=== PATIENT | male | born 1980 | race Hispanic/Latino ===

== ENCOUNTER 2023-02-14 00:08 | Emergency (ER) | payer OTHER ==
--- OUTSIDE RECORDS SUMMARY | 2023-02-14 00:12 | XMS REPORT | Continuity of Care Document ---
:1980 Author Organization [facility] t Address [address] [place] [address] [address] [place] [address] Care Team Providers Name Role Phone VALERIA REED Belen Primary Care Physician Unavailable TOREY GOETZ Attending Clinician Unavailable Torey Goetz MD Attending Clinician Unknown, Attending Attending Clinician Unavailable King ZAKIA MD, James C Attending Clinician NICKI MILLER III Attending Clinician Unavailable Doctor Unassigned, [place] Attending Clinician Unavailable Vaccine, Ang Db Cbc Fam Attending Clinician Unavailable Reymundo Goldman MD Attending Clinician REYMUNDO GOLDMAN Attending Clinician Unavailable SOFIA FIGUEREDO Attending Clinician Unavailable Only, Ang Db Test Attending Clinician Unavailable Bea [employer] Attending Clinician Nurse, Adc Pob Immunization Attending Clinician Unavailable Moustapha Kent DO Attending Clinician MOUSTAPHA KENT Attending Clinician Unavailable RAMESH COX Attending Clinician Unavailable Payers Payer Name Policy Type Policy Number Effective Date Expiration Date Genevieve esquivel CIGNA II [id number] 2019 00:00:00 Problems Condition Condition Condition Status Onset Resolution Last Treating Co mments Source Name Details Category Date Date Treatment Clinician Date No known No known Disease Unive rs active active ity of problems problems [facility] Allergies, Adverse Reactions, Alerts Allergy Allergy Status Severity Reaction(s) Onset Inactive Treating Comm ents Source Name Type Date Date Clinician NO KNOWN Drug Active Univers ALLERGIE Class [facility] [place] [facility] Social History Social Habit Start Date Stop Date Quantity Comments Source Exposure to 2022-11-26 2022-12-06 Not sure University SARS-CoV-2 00:00:00 10:31:00 [place] [facility] (event) [place] Tobacco use and 2022-12-06 2022-12-06 Smokeless tobacco Un iversity of exposure 00:00:00 00:00:00 non-user [facility] Sex Assigned At [birth year] Universit y of 00:00:00 00:00:00 [facility] Smoking Status Start Date Stop Date Source Never smoked tobacco [facility] Medications Ordered Filled Start Stop Current Ordering Indication Dosage Frequency Signature Comments Components Source Medication Medication Date Date Medication? Clinician (SIG) Name Name benzonatate Yes [id number] 200mg Take 2 Univers 100 mg 3-08 capsules ity of capsule 00:00: by mouth [place] 00 every 8 Medical (eight) Branch hours as needed for Cough. benzonatate Yes [id number] 200mg Take 2 Univers 100 mg 3-08 capsules ity of capsule 00:00: by mouth [place] 00 every 8 Medical (eight) Branch hours as needed for Cough. oseltamivir 2022- Yes [id number] 75mg Take 1 Univers (TAMIFLU) 3-08 03-14 capsule by ity of 75 mg 00:00: 04:59 mouth in [place] capsule 00 :00 the Medical morning Branch and 1 capsule in the evening. Do all this for 5 days. oseltamivir 2022- Yes [id number] 75mg Take 1 Univers (TAMIFLU) 3-08 03-14 capsule by ity of 75 mg 00:00: 04:59 mouth in [place] capsule 00 :00 the Medical morning Branch and 1 capsule in the evening. Do all this for 5 days. benzonatate Yes [id number] 100mg Take 1 Univers 100 mg 1-13 capsule by ity of capsule 00:00: mouth [place] 00 every 8 Medical (eight) Branch hours as needed for Cough. benzonatate 2022- No [id number] 100mg Take 1 Univers 100 mg 1-13 03-08 capsule by ity of capsule 00:00: 00:00 mouth [place] 00 :00 every 8 Medical (eight) Branch hours as needed for Cough. Methylpredn 2022- No [id number] 4mg Take 1 Univers isolone 4 1-13 -19 tablet by ity of mg tablet 00:00: 05:59 mouth [place] 00 :00 every 12 Medical (twelve) Branch hours for 5 days. bromphenira 2020-0 Yes [id number] 5mL Take 5 mL Univers mine-pseudo 1-10 by mouth 4 it y of ephedrine-D 00:00: (four[place] - [place] mg/5 mL daily as Branch syrup needed for Cold symptoms. ibuprofen 2020-0 Yes [id number] 800mg Take 1 U nivers 800 mg 1-10 tablet by ity of tablet 00:00: mouth [place] 00 every 8 Medical (eight) Branch hours as needed for Pain (scale 4-6). benzonatate 2020-0 Yes [id number] 200mg Take 1 Univers 200 mg 1-10 capsule by ity of capsule 00:00: mouth 3 [place] 00 (three) Medical times Branch daily as needed for Cough. bromphenira 2020-0 Yes [id number] 5mL Take 5 mL Univers mine-pseudo 1-10 by mouth 4 it y of ephedrine-D 00:00: (four[place] - [place] mg/5 mL daily as Branch syrup needed for Cold symptoms. ibuprofen 2020-0 Yes [id number] 800mg Take 1 U nivers 800 mg 1-10 tablet by ity of tablet 00:00: mouth [place] 00 every 8 Medical (eight) Branch hours as needed for Pain (scale 4-6). bromphenira 2020-0 Yes [id number] 5mL Take 5 mL Univers mine-pseudo 1-10 by mouth 4 it y of ephedrine-D 00:00: (four[place] -10 00 [place] Medical mg/5 mL daily as Branch syrup needed for Cold symptoms. ibuprofen 2020-0 Yes [id number] 800mg Take 1 U nivers 800 mg 1-10 tablet by ity of tablet 00:00: mouth [place] 00 every 8 Medical (eight) Branch hours as needed for Pain (scale 4-6). bromphenira 2020-0 Yes [id number] 5mL Take 5 mL Univers mine-pseudo 1-10 by mouth 4 it y of ephedrine-D 00:00: (four[place] 00 [place] mg/5 mL daily as Branch syrup needed for Cold symptoms. ibuprofen 2020-0 Yes [id number] 800mg Take 1 U nivers 800 mg 1-10 tablet by ity of tablet 00:00: mouth [place] 00 every 8 Medical (eight) Branch hours as needed for Pain (scale 4-6). benzonatate 2020-0 Yes [id number] 200mg Take 1 Univers 200 mg 1-10 capsule by ity of capsule 00:00: mouth 3 00 (three) Medical times Branch daily as needed for Cough. bromphenira 2020-0 Yes [id number] 5mL Take 5 mL Univers mine-pseudo 1-10 by mouth 4 it y of ephedrine-D 00:00: (four) Nydia Soriano 00 times Medical mg/5 mL daily as Branch syrup needed for Cold symptoms. ibuprofen 2020-0 Yes [id number] 800mg Take 1 U nivers 800 mg 1-10 tablet by ity of tablet 00:00: mouth [place] 00 every 8 Medical (eight) Branch hours as needed for Pain (scale 4-6). benzonatate 2020-0 Yes [id number] 200mg Take 1 Univers 200 mg 1-10 capsule by ity of capsule 00:00: mouth (three) Medical times Branch daily as needed for Cough. bromphenira 2020-0 Yes [id number] 5mL Take 5 mL Univers mine-pseudo 1-10 by mouth 4 it y of ephedrine-D 00:00: (four) Nydia Soriano 00 times Medical mg/5 mL daily as Branch syrup needed for Cold symptoms. ibuprofen 2020-0 Yes [id number] 800mg Take 1 U nivers 800 mg 1-10 tablet by ity of tablet 00:00: mouth [place] 00 every 8 Medical (eight) Branch hours as needed for Pain (scale 4-6). benzonatate 2020-0 Yes [id number] 200mg Take 1 Univers 200 mg 1-10 capsule by ity of capsule 00:00: mouth 3 00 (three) Medical times Branch daily as needed for Cough. bromphenira 2020-0 Yes [id number] 5mL Take 5 mL Univers mine-pseudo 1-10 by mouth 4 it y of ephedrine-D 00:00: (four) Nydia shearer M 2-30-10 00 times Medical mg/5 mL daily as Branch syrup needed for Cold symptoms. ibuprofen 2020-0 Yes [id number] 800mg Take 1 U nivers 800 mg 1-10 tablet by ity of tablet 00:00: mouth [place] 00 every 8 Medical (eight) Branch hours as needed for Pain (scale 4-6). benzonatate 2020-0 Yes [id number] 200mg Take 1 Univers 200 mg 1-10 capsule by ity of capsule 00:00: mouth 3 [place] 00 (three) Medical times Branch daily as needed for Cough. bromphenira 2020-0 Yes [id number] 5mL Take 5 mL Univers mine-pseudo 1-10 by mouth 4 it y of ephedrine-D 00:00: (four[place] 2-30-10 00 times Medical mg/5 mL daily as Branch syrup needed for Cold symptoms. ibuprofen 2020-0 Yes [id number] 800mg Take 1 U nivers 800 mg 1-10 tablet by ity of tablet 00:00: mouth [place] 00 every 8 Medical (eight) Branch hours as needed for Pain (scale 4-6). benzonatate 2020-0 Yes [id number] 200mg Take 1 Univers 200 mg 1-10 capsule by ity of capsule 00:00: mouth 3 [place] 00 (three) Medical times Branch daily as needed for Cough. benzonatate 2020-0 2023- No [id number] 200mg Take 1 Univers 200 mg 1-10 03-08 capsule by ity of capsule 00:00: 00:00 mouth 3 [place] 00 :00 (three) Medical times Branch daily as needed for Cough. Immunizations Ordered Filled Immunization Date Status Comments [facility] e Immunization Name Name SARS-COV-2 COVID-2022-09-13 Completed Unive rsity of VACCINE 12 YRS+, 00:00:00 [place] Me dical BIVALENT 0.5ML, IM, Branc h (MODERNA BOOSTER) SARS-COV-2 COVID-19 2022-09-13 Completed Unive rsity of VACCINE 12 YRS+, 00:00:00 [place] Me dical BIVALENT 0.5ML, IM, Branc h (MODERNA BOOSTER) SARS-COV-2 COVID-19 2022-09-13 Completed Unive rsity of VACCINE 12 YRS+, 00:00:00 [place] Me dical BIVALENT 0.5ML, IM, Branc h (MODERNA BOOSTER) SARS-COV-2 COVID-19 2022-09-13 Completed Unive rsity of VACCINE 12 YRS+, 00:00:00 [place] Me dical BIVALENT 0.5ML, IM, Branc h (MODERNA BOOSTER) SARS-COV-2 COVID-19 2022-09-13 Completed Unive rsity of VACCINE 12 YRS+, 00:00:00 [place] Me dical BIVALENT 0.5ML, IM, Branc h (MODERNA BOOSTER) SARS-COV-2 COVID-19 2021-08-10 Completed Unive rsity of MODERNA 0.25ML 00:00:00 [place] [facility]i [facility] BOOSTER VACCINE Branch SARS-COV-2 COVID-19 2021-08-10 Completed Unive rsity of MODERNA 0.25ML 00:00:00 [place] [facility]i [facility] BOOSTER VACCINE Branch SARS-COV-2 COVID-19 2021-08-10 Completed Unive rsity of MODERNA BOOSTER 00:00:00 [place] Med ical VACCINE Branch SARS-COV-2 COVID-19 2021-08-10 Completed Unive rsity of MODERNA BOOSTER 00:00:00 [place] Med ical VACCINE Branch SARS-COV-2 COVID-19 2021-08-10 Completed Unive rsity of MODERNA 0.25ML 00:00:00 [place] [facility]i [facility] BOOSTER VACCINE Branch SARS-COV-2 COVID-19 2021-08-10 Completed Unive rsity of MODERNA 0.25ML 00:00:00 [place] [facility]i [facility] BOOSTER VACCINE Branch SARS-COV-2 COVID-19 2021-08-10 Completed Unive rsity of MODERNA 0.25ML 00:00:00 [place] [facility] BOOSTER VACCINE Branch SARS-COV-2 COVID-19 2021-08-10 Completed Unive rsity of MODERNA 0.25ML 00:00:00 [place] [facility]i [facility] BOOSTER VACCINE Branch SARS-COV-2 COVID-19 2020-12-04 Completed Unive rsity of MODERNA 12+ YRS 00:00:00 [place] Med ical VACCINE Branch SARS-COV-2 COVID-19 2020-12-04 Completed Unive rsity of MODERNA 12+ YRS 00:00:00 [place] Med ical VACCINE Branch SARS-COV-2 COVID-19 2020-12-04 Completed Unive rsity of MODERNA VACCINE 00:00:00 [place] [facility] ical Branch SARS-COV-2 COVID-19 2020-12-04 Completed Unive rsity of MODERNA VACCINE 00:00:00 [place] Med ical Branch SARS-COV-2 COVID-19 2020-12-04 Completed Unive rsity of MODERNA 12+ YRS 00:00:00 [place] Med ical VACCINE Branch SARS-COV-2 COVID-19 2020-12-04 Completed Unive rsity of MODERNA 12+ YRS 00:00:00 [place] Med ical VACCINE Branch SARS-COV-2 COVID-19 2020-12-04 Completed Unive rsity of MODERNA 12+ YRS 00:00:00 [place] Med ical VACCINE Branch SARS-COV-2 COVID-19 2020-12-04 Completed Unive rsity of MODERNA 12+ YRS 00:00:00 [place] Med ical VACCINE Branch SARS-COV-2 COVID-19 2020-11-06 Completed Unive rsity of MODERNA 12+ YRS 00:00:00 [place] Med ical VACCINE Branch SARS-COV-2 COVID-19 2020-11-06 Completed Unive rsity of MODERNA 12+ YRS 00:00:00 [place] Med ical VACCINE Branch SARS-COV-2 COVID-19 2020-11-06 Completed Unive rsity of MODERNA VACCINE 00:00:00 [place] Med ical Branch SARS-COV-2 COVID-19 2020-11-06 Completed Unive rsity of MODERNA VACCINE 00:00:00 [place] Med ical Branch SARS-COV-2 COVID-19 2020-11-06 Completed Unive rsity of MODERNA 12+ YRS 00:00:00 [place] Med ical VACCINE Branch SARS-COV-2 COVID-19 2020-11-06 Completed Unive rsity of MODERNA 12+ YRS 00:00:00 [place] Med ical VACCINE Branch SARS-COV-2 COVID-19 2020-11-06 Completed Unive rsity of MODERNA 12+ YRS 00:00:00 [place] Med ical VACCINE Branch SARS-COV-2 COVID-19 2020-11-06 Completed Unive rsity of MODERNA 12+ YRS 00:00:00 [place] Med ical VACCINE Branch Vital Signs Vital Name Observation Time Observation Value Comments Source Systolic blood 2022-12-06 17:10:00 128 mm[Hg] Univer sity of pressure [place] [facility] Diastolic blood 2022-12-06 17:10:00 80 mm[Hg] Unive rsity of [facility] [place] Heart rate 2022-12-06 17:10:00 65 /min Universi ty of [place] [facility] Body temperature 2022-12-06 17:10:00 37.06 Sushila Univ ersity of [place] [facility] Respiratory rate 2022-12-06 17:10:00 20 /min Univ ersity of [place] [facility] Body height 2022-12-06 17:10:00 172.7 cm Universi ty of [place] [facility] Body weight 2022-12-06 17:10:00 107.457 kg Universi ty of [place] [facility] BMI 2022-12-06 17:10:00 36.02 kg/m2 Universi ty of [place] [facility] Oxygen saturation in 2022-12-06 17:10:00 98 /min University of Arterial blood by [place] SCYFIX harrison Pulse oximetry Branch Heart rate 2022-10-13 18:42:00 69 /min Universi ty of [place] [facility] Body temperature 2022-10-13 18:42:00 36.67 Sushila Univ ersity of [place] [facility] Respiratory rate 2022-10-13 18:42:00 17 /min Univ ersity of [place] [facility] Body height 2022-10-13 18:42:00 172.7 cm Universi ty of [place] [facility] Body weight 2022-10-13 18:42:00 112.492 kg Universi ty of [place] [facility] BMI 2022-10-13 18:42:00 37.71 kg/m2 Universi ty of [place] [facility] Oxygen saturation in 2022-10-13 18:42:00 97 /min University of Arterial blood by [place] [facility]i [facility] Pulse oximetry Branch Systolic blood 2022-10-13 18:42:00 120 mm[Hg] Univer sity of pressure [place] [facility] Diastolic blood 2022-10-13 18:42:00 81 mm[Hg] Unive rsity of [facility] [place] Procedures Procedure Date / Time Performed Performing Clinician Sourc e POCT MOLECULAR FLU 2022-12-06 17:21:00 Unknown, Attending Univer sity [facility] POCT MOLECULAR FLU 2022-10-13 18:47:00 Unknown, Attending Schuyler rivera [facility] ASSIGNMENT OF BENEFITS 2022-10-13 18:35:50 Doctor Unassigned, No General acute hospital SARS-COV-2 COVID-19 2022-09-13 20:11:26 Doctor Unassigned, No Un iversity of [place] VACCINE 12 YRS+, Name Medical [place] BIVALENT 0.5ML, IM (MODERNA BOOSTER) ASSIGNMENT OF BENEFITS 2022-09-13 19:56:31 Doctor Unassigned, No General acute hospital SARS-COV-2 COVID-19 2021-08-10 22:59:28 Doctor Unassigned, No Un iversity of [place] VACCINE Name [facility] BOOSTER,0.25ML,IM (MODERNA) Encounters Start End Encounter Admission Attending Care Care Encounter Source Date/Time Date/Time Type Type Clinicians Facility Department ID 2022-12-06 2022-12-06 Outpatient Segundo GOETZ [facility] [id number] Univers 10:20:00 11:36:42 TOREY de leon [facility] 2022-12-06 2022-12-06 Torey Fernando [facility] 1.2.840.114 [id number] Univers 10:20:00 11:36:42 Care Unknown, Attending HEALTH [id number] ity of [place] 4.2.7.2.686 Jose as ANDREA?BLEA [id number] [address] MEDICAL OFFICE BUILDING 2022-12-06 2022-12-06 Miky Goetz [facility] 1.2.840.114 [id number] Univers 00:00:00 00:00:00 (Out) [facility] [id number] it y of [place] [id number] Jose as ANDREA?BLEA [id number] [address] MEDICAL OFFICE BUILDING 2022-10-13 2022-10-13 Nicki Gardner [facility] 1.2.840.114 [id number] Univers 12:40:00 13:00:00 Care Unknown, Attending HEALTH [id number] ity of [place] [id number] Jose as ANDREA?BLEA [id number] [address] MEDICAL OFFICE BUILDING 2022-10-13 2022-10-13 Outpatient R KING ZAKIA, [facility] [id number] Univers 12:40:00 12:40:00 NICKI de leon [facility] 2022-10-13 2022-10-13 Orders Doctor KAYE [id number] [id number] Univers 00:00:00 00:00:00 Only Unassigned, RIMMA [id number] ity of [place] [facility] 4.2.7.2.686 Jose as [id number] [address] 2022-09-14 2022-09-14 Outpatient R [facility] [id number] Univers 14:30:00 14:30:00 ity [facility] 2022-09-13 2022-09-13 Imm/Inj Vaccine, Ang Db Cbc Fam [facility] 1. 2.840.114 [id number] Univers 13:50:00 14:00:00 Visit Goldman Reymundo [employer] [id number] ity [facility] [id number] Jose as ANDREA?BLEA [id number] [address] MEDICAL OFFICE BUILDING 2022-09-13 2022-09-13 [facility] [id number] Univers 13:50:00 13:50:00 REYMUNDO de leon [facility] 2022-09-13 2022-09-13 Orders Doctor KAYE [id number] [id number] Univers 00:00:00 00:00:00 Only Unassigned, RIMMA [id number] ity of [place] [facility] 4.2.7.2.686 Jose as [id number] [address] 2021-09-16 2021-09-16 Outpatient R BEA [facility] [id number] Univers 11:30:00 12:07:33 SOFIA itnabila [facility] 2021-09-16 2021-09-16 Laboratory Only, Ang Db Test [facility] 1.2.8 40.114 [id number] Univers 11:30:00 11:45:00 Only Bea Sofia [employer] [id number] ity of [place] [id number] Jose as ANDREA?BLEA [id number] Vt dical KNEY [address] [place] MEDICAL OFFICE BUILDING 2021-09-16 2021-09-16 Outpatient R [facility] [id number] Univers 11:30:00 11:30:00 [id number] [facility] 2021-08-10 2021-08-10 Imm/Inj Nurse, Adc Pob Immunization [facility] 1.2.840.114 [id number] Univers 16:14:16 16:14:31 Visit Moustapha Kent 350.1.13 .10 [facility] [id number] Nydia shearer ESSIO [id number] Vt dical [facility] 421 Branch BUILDING 2021-08-10 2021-08-10 Outpatient R DONTE [facility] [id number] Univers 16:10:00 16:14:31 MOUSTAPHA [facility] 2020-12-04 2020-12-04 Outpatient [facility] [id number] Univers 16:55:00 16:55:00 [facility] 2020-11-06 2020-11-06 [facility] [id number] Univers 16:30:00 16:30:00 RAMESH [facility] 2020-04-10 2020-04-10 Outpatient R [facility] [id number] Univers 15:45:00 15:45:00 [id number] [facility] 2020-04-10 2020-04-10 [facility] [id number] Univers 15:45:00 15:45:00 RAMESH [facility] Results Test Description Test Time Test Comments Results Result Comments Source POCT MOLECULAR FLU 2022-12-06 17:27:45 Test Item Value Reference Range Interpretation Comme nts POCT Molecular FluA (test code = 13952-4) Positive Negative A Lab Interpretation (test code = 05162-7) [id number] 18:59:22 Test Item Value Reference Range Interpretation Comments POCT Molecular FluA (test code = Negative Negative 40030-8) POCT Molecular FluB (test code = Negative Negative 31437-5) Lab Interpretation (test code = Normal 04430-6) [facility]
[2023-02-14] MEDS ORDERED: MORPHINE 4 MG/ML SYR ONE (00:32)
[2023-02-14] MEDS ORDERED: NA CHLORIDE 0.9% 1,000 ML ONE (00:32)
[2023-02-14] MEDS ORDERED: ONDANSETRON 4 MG/2 ML VIAL ONE (00:32)
[2023-02-14 00:48] LABS: Absolute Lymphocytes (CBC) 1.9 K/uL (0.7-4.9); Hematocrit 45.9 % (39.6-49.0); Lymphocytes % 19.3 % (15.3-44.8); MCV 85.6 fL (80-100); MPV 8.7 fL (7.6-11.3); Protime INR 0.99; RBC Red Blood Cell Count 5.37 M/uL (4.33-5.43)
[2023-02-14 01:01] LABS: Bilirubin Direct 0.1 mg/dL (0-0.2); Bilirubin Indirect, Calculated 0.3 mg/dL (0.2-0.8); Bilirubin Total 0.4 mg/dL (0.2-1.0); Potassium 3.7 mEq/L (3.5-5.1); Protein, Total 7.6 g/dL (6.4-8.2); Troponin High Sensitivity 4.1 pg/mL (<58.9)
[2023-02-14] MEDS ORDERED: ASPIRIN 81 MG CHEWABLE TABLET ONE (02:20)
[2023-02-14] MEDS ORDERED: AZITHROMYCIN 250 MG TAB ONE (02:21)
--- NOTE | 2023-02-14 04:59 | ER ---
Nurse's Notes [facility] Name: Abad Lester Age: 42 yrs Sex: Male : 1980 Arrival Date: 02/14/2023 Time: 00:08 Bed 15 Private MD: Diagnosis: Chest pain, unspecified;Midsternal chest pain, right lower lung pneumonia Presentation: 02/14 00:20 Chief complaint: Patient states: chest pain that started around 1700 5/16 and shortness as6 of breath that started around 2300 5/16. Coronavirus screen: At this time, the client does not indicate any symptoms associated with coronavirus-19. Ebola Screen: No symptoms or risks identified at this time. Initial Sepsis Screen: Does the patient meet any 2 criteria? No. Patient's initial sepsis screen is negative. Does the patient have a suspected source of infection? No. Patient's initial sepsis screen is negative. Risk Assessment: Do you want to hurt yourself or someone else? Patient reports no desire to harm self or others. Onset of symptoms was February 13, 2023. 00:20 Acuity: STEPHANY 3 as6 00:20 Method Of Arrival: Ambulatory as6 Historical: - Allergies: 00:40 No Known Allergies; as6 - Home Meds: 00:40 None [Active]; as6 - PMHx: 00:40 None; as6 - PSHx: 00:40 hernia; as6 - Immunization history:: Client reports receiving the 2nd dose of the Covid vaccine, moderna. - Social history:: Patient/guardian denies using alcohol, street drugs, IV drugs, caffeine, over the counter diet medications, tobacco products, Smoking status: Patient denies any tobacco usage or history of. - Family history:: not pertinent. Screenin:41 [facility] ED Fall Risk Assessment (Adult) Score/Fall Risk Level 0 - 2 = Low Risk. Abuse as6 screen: Denies threats or abuse. Denies injuries from another. Nutritional screening: No deficits noted. Tuberculosis screening: No symptoms or risk factors identified. Assessment: 00:30 General: Appears in no apparent distress. comfortable, Behavior is cooperative, as6 anxious. Pain: Complains of pain in chest Pain radiates to right arm Quality of pain is described as pressure, Pain began gradually. Neuro: Level of Consciousness is awake, alert, obeys commands, Oriented to person, place, time, situation. Cardiovascular: Reports chest pain, shortness of breath, Heart tones S1 S2 present Capillary refill < 3 seconds Patient's skin is warm and dry. Respiratory: Reports shortness of breath Airway is patent Trachea midline Respiratory effort is even, unlabored, Respiratory pattern is regular, symmetrical, Breath sounds are clear bilaterally. GI: No deficits noted. No signs and/or symptoms were reported involving the gastrointestinal system. : No deficits noted. No signs and/or symptoms were reported regarding the genitourinary system. EENT: No deficits noted. No signs and/or symptoms were reported regarding the EENT system. Derm: Skin is intact, is healthy with good turgor. 02:50 Reassessment: Patient appears in no apparent distress at this time. Patient and/or as6 family updated on plan of care and expected duration. Pain level reassessed. Patient is alert, oriented x 3, equal unlabored respirations, skin warm/dry/pink. Patient states feeling better. 04:30 Reassessment: Patient appears in no apparent distress at this time. Patient and/or aa9 family updated on plan of care and expected duration. Pain level reassessed. Patient is alert, oriented x 3, equal unlabored respirations, skin warm/dry/pink. Patient denies pain at this time. 05:11 Reassessment: Patient appears in no apparent distress at this time. Patient and/or ll3 family updated on plan of care and expected duration. Pain level reassessed. Patient is alert, oriented x 3, equal unlabored respirations, skin warm/dry/pink. Patient states symptoms have improved. Vital Signs: 00:20 BP 138 / 87; Pulse 70; Resp 21 S; Temp 98.2(O); Pulse Ox 96% on R/A; Weight 108.86 kg as6 (R); Height 5 ft. 8 in. (R); Pain 7/10; 00:56 BP 127 / 90; Pulse 71; Resp 14 S; Pulse Ox 96% on R/A; as6 02:50 BP 105 / 78; Pulse 71; Resp 14 S; Pulse Ox 94% on R/A; as6 04:00 BP 110 / 70; Pulse 71; Resp 18; Pulse Ox 99% on R/A; aa9 05:06 BP 104 / 68; Pulse 74; Resp 18; Temp 98.6(O); Pulse Ox 98% ; aa9 00:20 Body Mass Index 36.49 (108.86 kg, 172.72 cm) as6 00:20 Pain Scale: Adult as6 ED Course: 00:11 Patient arrived in ED. ja2 00:11 Bean Cuevas MD is Attending Physician. sp4 00:25 Inserted saline lock: 20 gauge in right antecubital area, using aseptic technique. as6 Blood collected. 00:25 Patient maintains SpO2 saturation greater than 95% on room air. as6 00:36 Yifan Amaya, FÉLIX is Primary Nurse. as6 00:37 Arm band placed on. as6 00:39 XRAY Chest (1 view) In Process Unspecified. EDMS 00:40 Triage completed. as6 00:41 Placed in gown. Bed in low position. Call light in reach. Side rails up X2. Client as6 placed on continuous cardiac and pulse oximetry monitoring. NIBP monitoring applied. Warm blanket given. 01:29 CT Aorta for Dissection In Process Unspecified. EDMS 04:15 Troponin High Sensitivity Sent. aa9 04:56 Kyle Espinoza MD is Referral Physician. sp4 05:07 No provider procedures requiring assistance completed. aa9 05:11 IV discontinued, intact, bleeding controlled, No redness/swelling at site. Pressure ll3 dressing applied. Administered Medications: 00:30 Drug: morphine IVP or IV 4 mg Route: IVP; Infused Over: 4 mins; Site: right antecubital;as6 00:30 Drug: Ondansetron IVP 4 mg Route: IVP; Site: right antecubital; as6 00:30 Drug: NS 0.9% IV 1000 ml Route: IV; Rate: 1 bolus; Site: right antecubital; as6 02:17 Drug: Aspirin PO Chewable Tablet 324 mg Route: PO; as6 02:17 Drug: AZITHromycin PO 500 mg Route: PO; as6 Medication: 00:41 VIS not applicable for this client. as6 Outcome: 04:58 Discharge ordered by . sp4 05:11 Discharged to home ambulatory, with significant other. ll3 05:11 Condition: stable 05:11 Discharge instructions given to patient, significant other, Instructed on discharge instructions, follow up and referral plans. medication usage, Demonstrated understanding of instructions, follow-up care, medications, Prescriptions given X 2. 05:12 Patient left the ED. ll3 Signatures: Dispatcher [employer] EDMS Sandra Gutierrez Ashby RN RN as6 Jessenia Philip RN RN ll3 Ofe Huggins RN RN aa9 Bean Cuevas MD MD sp4
--- NOTE | 2023-02-14 04:59 | EDPHYS ---
Physician Documentation [facility] Name: Abad Lester Age: 42 yrs Sex: Male : 1980 Arrival Date: 02/14/2023 Time: 00:08 Bed 15 Private MD: ED Physician Bean Cuevas HPI: 02/14 00:11 This 42 yrs old Male presents to ER via Unassigned with complaints of Chest sp4 Pain. 00:20 Very pleasant 42-year-old male presents with acute onset midsternal chest pain with sp4 radiation to the back. Pain started at 6 PM without physical exertion and patient reports pain as tightness associated with some shortness of breath. Patient has 6 out of 10 in intensity feels like tight and heavy type pain and has not happened with the patient in the past patient denied any exertional chest pains, denied dyspnea on exertion, denied history of smoking, denied history of family heart issues, denied abuse of tobacco alcohol or drugs, denied any prescribed medications, patient takes daily vitamins. And has no known drug allergies. At this time pain is 6 out of 10 on the pain scale. Historical: - Allergies: 00:40 No Known Allergies; as6 - Home Meds: 00:40 None [Active]; as6 - PMHx: 00:40 None; as6 - PSHx: 00:40 hernia; as6 - Immunization history:: Client reports receiving the 2nd dose of the Covid vaccine, moderna. - Social history:: Patient/guardian denies using alcohol, street drugs, IV drugs, caffeine, over the counter diet medications, tobacco products, Smoking status: Patient denies any tobacco usage or history of. - Family history:: not pertinent. ROS: 00:20 Constitutional: Negative for fever, chills, and weight loss, Eyes: Negative for injury, sp4 pain, redness, and discharge, ENT: Negative for injury, pain, and discharge, Neck: Negative for injury, pain, and swelling, Cardiovascular: Negative for palpitations, and edema, positive for chest pain and dyspnea Respiratory: Negative for cough, wheezing, positive for chest pain and shortness of breath Abdomen/GI: Negative for abdominal pain, nausea, vomiting, diarrhea, and constipation, Back: Negative for injury positive for chest pain with radiation into the back : Negative for injury, bleeding, discharge, and swelling, MS/Extremity: Negative for injury and deformity, Skin: Negative for injury, rash, and discoloration, Neuro: Negative for headache, weakness, numbness, tingling, and seizure, Psych: Negative for depression, anxiety, Allergy/Immunology: Negative for hives, rash, and allergies Endocrine: Negative for neck swelling, polydipsia, polyuria, polyphagia, and weight changes Hematologic/Lymphatic: Negative for swollen nodes, abnormal bleeding, and unusual bruising Exam: 00:20 Constitutional: This is a well developed, well nourished patient who is awake, alert, sp4 and in no acute distress. Head/Face: Normocephalic, atraumatic. Eyes: Pupils equal round and reactive to light, extra-ocular motions intact. Lids and lashes normal. Conjunctiva and sclera are not injected. Cornea within normal limits. Periorbital areas with no swelling, redness, or edema. ENT: Nares patent. No nasal discharge, no septal abnormalities noted. Tympanic membranes are normal and external auditory canals are clear. Oropharynx with no redness, swelling, or masses, exudates, or evidence of obstruction, uvula midline. Mucous membranes moist. Neck: Trachea midline, no thyromegaly or masses palpated, and no cervical lymphadenopathy. Supple, full range of motion without nuchal rigidity, or vertebral point tenderness. No Meningismus. Chest/axilla: Normal chest wall appearance and motion. Nontender with no deformity. No lesions are appreciated. Cardiovascular: Regular rate and rhythm with a normal S1 and S2. No gallops, murmurs, or rubs. Normal PMI, no JVD. No pulse deficits. Respiratory: Lungs have equal breath sounds bilaterally, clear to auscultation and percussion. No rales, rhonchi or wheezes noted. No increased work of breathing, no retractions or nasal flaring. Abdomen/GI: Soft, non-tender, with normal bowel sounds. No distension or tympany. No guarding or rebound. No evidence of tenderness throughout. Back: No spinal tenderness. No costovertebral tenderness. Male : Normal genitalia with no discharge or lesions. Skin: Warm, dry with normal turgor. Normal color with no rashes, no lesions, and no evidence of cellulitis. MS/ Extremity: Pulses equal, no cyanosis. Neurovascular intact. Full, normal range of motion. Neuro: Awake and alert, GCS 15, oriented to person, place, time, and situation. Cranial nerves II-XII grossly intact. Motor strength 5/5 in all extremities. Sensory grossly intact. Psych: Awake, alert, with orientation to person, place and time. Behavior, mood, and affect are within normal limits 01:55 ECG was reviewed by the Attending Physician. EKG time 0023, there is sinus rhythm with sp4 first-degree AV block at the rate of 69. No ST elevation or depression. No ectopy. Overall normal EKG Vital Signs: 00:20 BP 138 / 87; Pulse 70; Resp 21 S; Temp 98.2(O); Pulse Ox 96% on R/A; Weight 108.86 kg as6 (R); Height 5 ft. 8 in. (R); Pain 7/10; 00:56 BP 127 / 90; Pulse 71; Resp 14 S; Pulse Ox 96% on R/A; as6 02:50 BP 105 / 78; Pulse 71; Resp 14 S; Pulse Ox 94% on R/A; as6 04:00 BP 110 / 70; Pulse 71; Resp 18; Pulse Ox 99% on R/A; aa9 05:06 BP 104 / 68; Pulse 74; Resp 18; Temp 98.6(O); Pulse Ox 98% ; aa9 00:20 Body Mass Index 36.49 (108.86 kg, 172.72 cm) as6 00:20 Pain Scale: Adult as6 MDM: 01:26 Patient medically screened. sp4 01:57 HEART Score: History: Moderately Suspicious (1), ECG: Normal (0), Age: < or = 45 years sp4 (0), Risk Factors: No Risk Factors Known (0), Troponin: < or = 1 x Normal Limit (0), Total Score = 1. The patient was given aspirin in the Emergency Department. Data reviewed: vital signs, nurses notes, old medical records, lab test result(s), amylase and lipase, cardiac enzymes, CBC, electrolytes, hepatic panel, urinalysis, EKG. 02:01 ED course: Chest x-ray revealed mild prominent interstitial markings low lung volumes sp4 and no consolidation. CT angiography of the aorta revealed no acute aortic abnormality, no pulmonary embolism. Right lung base opacities concerning for pneumonia or atelectasis correlate for signs of infection. No acute abdominal or pelvic abnormality. Hepatic steatosis. Multiple hepatic cysts measuring up to 1.5 cm.. 04:49 Differential diagnosis: acute pericarditis, anxiety, coronary artery disease chest wall sp4 pain, congestive heart failure cholecystitis, gastroesophageal reflux disease (GERD), stable angina, thoracic aortic disection, unstable angina, Aortic aneurysm. 02/14 00:11 Order name: Basic Metabolic Panel; Complete Time: : [facility] 02/14 00:11 Order name: CBC with Diff; Complete Time: : [facility] 02/14 00:11 Order name: LFT's; Complete Time: : [facility] 02/14 00:11 Order name: NT PRO-BNP; Complete Time: : [facility] 02/14 00:11 Order name: PT-INR; Complete Time: : [facility] 02/14 00:11 Order name: Troponin HS; Complete Time: : [facility] 02/14 00:41 Order name: Lipase; Complete Time: :55 EDMS 02/14 03:49 Order name: Troponin High Sensitivity; Complete Time: :55 [facility] 02/14 00:11 Order name: XRAY Chest (1 view) [facility] 02/14 00:20 Order name: CT Aorta for Dissection 02/14 00:11 Order name: EKG; Complete Time: 00:12 [facility] 02/14 00:11 Order name: Cardiac monitoring; Complete Time: 00:37 [facility] 02/14 00:11 Order name: EKG - Nurse/Tech; Complete Time: 00:37 [facility] 02/14 00:11 Order name: IV Saline Lock; Complete Time: 00:37 [facility] 02/14 00:11 Order name: Labs collected and sent; Complete Time: 00:37 [facility] 02/14 00:11 Order name: O2 Per Protocol; Complete Time: 00:37 [facility] 02/14 00:11 Order name: O2 Sat Monitoring; Complete Time: 00:37 [facility] 02/14 03:49 Order name: EKG - Nurse/Tech; Complete Time: 04:15 4 EC:55 Rate is 69 beats/min. Rhythm is regular, Normal Sinus Rhythm. QRS [place] is Normal. MD sp4 interval is normal. QRS interval is normal. QT interval is normal. T waves are Normal. No ST changes noted. Clinical impression: No evidence of ischemia. Interpreted by me. Administered Medications: 00:30 Drug: morphine IVP or IV 4 mg Route: IVP; Infused Over: 4 mins; Site: right antecubital;as 00:30 Drug: Ondansetron IVP 4 mg Route: IVP; Site: right antecubital; as 00:30 Drug: NS 0.9% IV 1000 ml Route: IV; Rate: 1 bolus; Site: right antecubital; as 02:17 Drug: Aspirin PO Chewable Tablet 324 mg Route: PO; 02:17 Drug: AZITHromycin PO 500 mg Route: PO; Disposition: 04:49 Critical Care: not applicable. sp4 Disposition Summary: 02/14/23 04:58 Discharge Ordered Location: Home sp4 Problem: new sp4 Symptoms: have improved sp4 Condition: Stable sp4 Diagnosis - Chest pain, unspecified sp4 - Midsternal chest pain, right lower lung pneumonia sp4 Followup: sp4 - With: Kyle Espinoza MD - When: 7 - 10 days - Reason: Recheck today's complaints Discharge Instructions: - Discharge Summary Sheet sp4 - Nonspecific Chest Pain, Adult, [id number] sp4 - Community-Acquired Pneumonia, Adult, [id number] sp4 Forms: - Antibiotic Education sp4 Prescriptions: - naproxen sodium 500 mg Oral Tablet, ER Multiphase 24 hr - take 1 tablet by ORAL route every 12 hours PRN pain; 30 tablet; Refills: 0, sp4 Product Selection Permitted - Zithromax Z-Neo 250 mg Oral Tablet - take 1 tablet by ORAL route as directed for 5 days Day 1 - take two (2) tablets sp4 one time. Day 2, 3, 4 , 5 take one (1) tablet once daily.; 6 tablet; Refills: 0, Product Selection Permitted Signatures: Dispatcher [employer] Yifan Velasquez RN RN as6 Bean Cuevas MD MD sp4 Corrections: (The following items were deleted from the chart) 00:41 00:20 LIPASE+C.LAB.BRZ ordered. EDMS ED
[2023-02-14 05:24] VITALS: BP 104/68; TEMP 98.6; O2SAT 98
--- NOTE | 2023-02-14 10:20 | RAD REPORT ---
EXAM DESCRIPTION: CT Angiography Chest, Abdomen and Pelvis With Intravenous Contrast CLINICAL HISTORY: The patient is 42 years old and is Male; chest pains TECHNIQUE: Axial computed tomographic angiography images of the chest, abdomen and pelvis with intra venous contrast. This CT exam was performed using one or more of the following dose reduction techn iques: automated exposure control, adjustment of the mA and/or kV according to patient size, and/or use of iterative reconstruction technique. MIP reconstructed images were created and reviewed. DLP: 1785 mGy*cm COMPARISON: Chest radiograph of the same day. FINDINGS: VASCULATURE: AORTA: No acute findings. No aortic aneurysm. No dissection. PULMONARY ARTERIES: Unremarkable as visualized. No pulmonary embolism is identified. GREAT VESSELS OF AORTIC ARCH: No acute findings. No dissection. No arterial occlusion or signif icant stenosis. CELIAC TRUNK AND MESENTERIC ARTERIES: No acute findings. No occlusion or significant stenosis. RENAL ARTERIES: No acute findings. No occlusion or significant stenosis. ILIAC ARTERIES: No acute findings. No occlusion or significant stenosis. CHEST: LUNGS: Right lung base opacities concerning for pneumonia or atelectasis. PLEURAL SPACE: Unremarkable. No significant effusion. No pneumothorax. HEART: Unremarkable. No cardiomegaly. No significant pericardial effusion. ABDOMEN: LIVER: Hepatic steatosis. Multiple hepatic cysts measuring up to 1.5 cm. GALLBLADDER AND BILE DUCTS: Unremarkable. No calcified stones. No ductal dilation. PANCREAS: Unremarkable. No ductal dilation. No mass. SPLEEN: Unremarkable. No splenomegaly. ADRENALS: Unremarkable. No mass. KIDNEYS AND URETERS: Unremarkable. No hydronephrosis. No solid mass. STOMACH AND BOWEL: Unremarkable. No obstruction. No mucosal thickening. PELVIS: APPENDIX: The appendix is seen and is within normal limits. BLADDER: Unremarkable. No mass. REPRODUCTIVE: Unremarkable as visualized. CHEST, ABDOMEN and PELVIS: INTRAPERITONEAL SPACE: Unremarkable. No significant fluid collection. No free air. BONES/JOINTS: No acute fracture. No dislocation. SOFT TISSUES: Bilateral fat-containing inguinal hernias. LYMPH NODES: Unremarkable. No enlarged lymph nodes. IMPRESSION: 1. No acute aortic abnormality. No pulmonary embolism. 2. Right lung base opacities concerning for pneumonia or atelectasis. Correlate for signs of infe ction. 3. No acute abdominal or pelvic abnormality. 4. Hepatic steatosis. Multiple hepatic cysts measuring up to 1.5 cm. Electronically signed by: Benjamín Martinez DO 02/14/2023 1:56 AM CDT Due to temporary technical issues with the PACS/Fluency reporting system, reports are being signed by the in house radiologist without review as a courtesy to ensure prompt reporting. The interpreting r adiologist is fully responsible for the content of the report.
--- NOTE | 2023-02-14 10:21 | RAD REPORT ---
EXAM DESCRIPTION: XR Chest, 1 View CLINICAL HISTORY: The patient is 42 years old and is Male; CHEST PAIN TECHNIQUE: Frontal view of the chest. COMPARISON: No relevant prior studies available. FINDINGS: Lungs: Mildly prominent interstitial markings. Low lung volumes. No consolidation. Pleural space: Unremarkable. No pneumothorax. Heart: Unremarkable. Mediastinum: Unremarkable. Bones/joints: Unremarkable. IMPRESSION: Mildly prominent interstitial markings. Low lung volumes. No consolidation. Electronically signed by: Jonas Ledezma MD 02/14/2023 12:53 AM CDT Due to temporary technical issues with the PACS/Fluency reporting system, reports are being signed by the in house radiologist without review as a courtesy to ensure prompt reporting. The interpreting r adiologist is fully responsible for the content of the report.
--- NOTE | 2023-02-14 11:45 | EKG ---
Test Date: 2023-02-14 Test Time: 00:23:05 Voice Studies Director: ADRIAN MEASUREMENT RESULTS: Intervals: Rate: 69 AR: 218 QRSD: 86 QT: 408 QTc: 437 [place]: P: 30 AR: 218 QRS: 41 T: 24 INTERPRETIVE STATEMENTS: Sinus rhythm with 1st degree AV block Otherwise normal ECG No previous ECG available for comparison Electronically Signed On 02-14-23 11:44:29 CDT by Aidan Huntley
--- NOTE | 2023-02-15 11:25 | EKG ---
Test Date: 2023-02-14 Test Time: 04:10:14 [place] [employer]: ELDON MEASUREMENT RESULTS: Intervals: Rate: 72 DC: 196 QRSD: 98 QT: 408 QTc: 446 [place]: P: 17 DC: 196 QRS: 37 T: 5 INTERPRETIVE STATEMENTS: Normal sinus rhythm ST elevation, consider inferolateral injury or acute infarct ACUTE AL / STEMI Abnormal ECG Compared to ECG 02/14/2023 04:09:30 No significant changes Electronically Signed On 02-15-23 11:20:30 CDT by Aidan Huntley
--- NOTE | 2023-02-15 11:25 | EKG ---
Test Date: 2023-02-14 Test Time: 04:09:30 [employer] [place]: ELDON MEASUREMENT RESULTS: Intervals: Rate: 77 GA: 190 QRSD: 98 QT: 398 QTc: 450 [place]: P: 23 GA: 190 QRS: 41 T: 4 INTERPRETIVE STATEMENTS: Normal sinus rhythm ST elevation, consider inferolateral injury or acute infarct ACUTE [place] / STEMI Abnormal ECG Compared to ECG 02/14/2023 00:23:05 ST (T wave) deviation now present Myocardial infarct finding now present Myocardial infarct finding now present First degree AV block no longer present Electronically Signed On 02-15-23 11:20:31 CDT by Aidan Huntley
== END 2023-02-14 05:12 | disposition home or self-care (01) ==
LOC: ER 00:08
DX: J18.9 Pneumonia, unspecified organism (principal)
CPT/HCPCS: 93005; 85025; 80048; 36415; 85610; 80076; 84484 ×2; 83690; 83880; 71275; 74175; 71045; Q9967; J2405; J7030